=== PATIENT | female | born 1970 | race Caucasian/White ===

== ENCOUNTER 2022-05-26 10:20 | Emergency (ER) | payer OTHER, SELFPAY ==
[2022-05-26 10:52] VITALS: BP 161/77; PULSE 73; RESP 18; TEMP 36.6; O2SAT 98; BMI 33.3
--- OUTSIDE RECORDS SUMMARY | 2022-05-26 11:31 | XMS_ITS | Clinical Summary ---
:1970 Author Organization [facility] [place] [address] Care Team Providers Name Role Phone Pcp, No Primary Care Provider Unavailable Allergies Not on File Medications Not on file Active Problems Not on file Social History Tobacco Use Types Packs/Day Years Used Date Never Assessed Sex Assigned at Date Recorded Not on file Plan of Treatment Not on file Results Not on filefrom Last 3 Months Insurance Payer Benefit Plan / Subscriber ID Effective Dates Phone Addre ss Type Group PREFERRED ONE PREFERRED ONE [id number] 2015-Present [address] [place] [address] Care Teams Warehouseman Relationship Specialty Start Date End Date Pcp, No PCP - General 06/04/16 .
--- NOTE | 2022-05-26 11:43 | ED.HA ---
HPI - Headache General Chief Complaint: Headache/Migraine Stated Complaint: Weird headache, dizzy, blurred vision Time Seen by Provider: 05/26/22 11:02 History of Present Illness HPI Narrative: This 51-year-old female comes in reporting a headache in the posterior aspect of her head that began 4 days ago. She has some associated blurry vision and states that if she turns her head left or right she gets some vertigo symptoms. This is not the worst headache she has ever head. She does not get headaches row frequently. It was the blurry vision and vertigo symptoms brings her in today. She does not have any neurologic deficit. She does not report any nausea or vomiting. Related Data Home Medications Medication Instructions Recorded Confirmed cetirizine 10 mg tablet 10 mg PO QDAY PRN 03/20/22 03/29/22 estradiol 0.01% (0.1 mg/gram) 0.5 g vaginal 2XW 03/20/22 03/29/22 vaginal cream multivitamin (Multiple Vitamins 1 tab PO QDAY 03/20/22 03/29/22 tablet) Multiple vitamin PO 03/29/22 cyclobenzaprine 10 mg tablet 10 mg PO PRN 03/29/22 03/29/22 Previous Rx's Medication Instructions Recorded escitalopram oxalate 10 mg tablet 10 mg PO QDAY #90 tabs 03/29/22 trazodone 50 mg tablet 25 - 50 mg PO QDAY #90 tabs 03/29/22 ketorolac 10 mg tablet 10 mg PO Q8H 5 days #15 tabs 05/26/22 methylprednisolone 4 mg tablets in See Rx Instructions PO .COMPLEX 05/26/22 a dose pack (Medrol (Eliu)) #21 ea ondansetron HCl 4 mg tablet 4 mg PO Q6H #20 tabs 05/26/22 Allergies Allergy/AdvReac Type Severity Reaction Status Date / Time No Known Drug Allergies Allergy Verified 03/29/22 09:07 Review of Systems Status of ROS: Reports: 10 or more systems reviewed and unremarkable except as noted in History and below Narrative: Constitutional: No fevers, no weight gain or loss. Eyes: No discharge. She reports blurry vision. HENT: No congestion, no sore throat, no ear pain. Cardiovascular: No chest pain, no palpitations. Respiratory: No shortness of breath, no wheezes, no cough. Gastrointestinal: No abdominal pain, no vomiting, no diarrhea. Genitourinary: No dysuria, no hematuria. Musculoskeletal: Normal range of motion. Skin: No rashes, no pruritis. Neurological: No dizziness, weakness, sensory change, speech change. Vertigo symptoms when turning her head. No vertigo symptoms when remaining still. Endo/Heme/Allergies: No bruising or bleeding. No polydipsia. Pysch: no suicidality, no anxiety, no insomnia. All other systems reviewed and are negative. [facility] Medical History (Updated 05/26/22 @ 14:03 by Jose Manuel MD) History of endometrial biopsy (07/05/14) History of pyelonephritis History of pyelonephritis (2003) Pulmonary embolism Surgical History (Updated 03/28/22 @ 09:51 by Silva Vargas) H/O abdominoplasty H/O dilation and curettage H/O ovarian cystectomy H/O right breast biopsy History of abdominoplasty (2005) History of dilation and curettage (2010) History of right breast biopsy (1999) S/P appendectomy S/P section Status post appendectomy (1985) Status post bilateral breast reduction Status post bilateral breast reduction (1986) Status post delivery Social History Smoking Status: Never smoker Do you use any of these nicotine containing products: None Second hand tobacco smoke exposure: No How often do you have a drink containing alcohol: 2-4 times a month AUDIT-C Alcohol total score: 2 Non-prescribed substance use: denies use Little interest or pleasure in doing things: not at all Feeling down, depressed, or hopeless: not at all Exam Narrative: Exam Narrative: Constitutional: Well-developed, well-nourished, no acute distress. HEENT: Normocephalic, atraumatic. No nystagmus. Neck: Normal range of motion. Nontender. Supple. Heart: Regular. No murmurs. Normal rate. Intact distal pulses. Lungs: Clear to auscultation. No chest discomfort. No wheezes, rhonchi, or rales. Abdomen: Normal bowel sounds. Nontender. No rebound tenderness. Genitalia: Deferred. Back: No midline tenderness. Normal range of motion. Extremities: Normal range of motion. No injury. Skin: Intact. No rash. Warm. No erythema or pallor. Neurologic: No altered sensation. No weakness. Alert and oriented. [id number] is normal. No pronator drift. No facial asymmetry. Youth Pastor strength is equal bilaterally. Normal speech. Psychiatric: No suicidality. No anxiety or depression. No insomnia. Nursing notes and vitals signs are reviewed. Const: Vital Signs, click to edit/add: Vital Signs - 24 hr 05/26/22 10:52 Temperature 97.8 F Pulse Rate [Right Pulse Oximeter] 73 Respiratory Rate 18 Blood Pressure [Ri ght Upper Arm] 161/77 H Pulse Oximetry 98 Oxygen Delivery Me thod Room Air Course Vital Signs Vital signs: Initial Vital Signs Temperature 97.8 F 05/26/22 10:52 Temperature Source Temporal Artery Scan 05/26/22 10:52 Pulse Rate 73 05/26/22 10:52 Respiratory Rate 18 05/26/22 10:52 Blood Pressure 161/77 H 05/26/22 10:52 Blood Pressure Mean 105 05/26/22 10:52 Blood Pressure Position Sitting 05/26/22 10:52 Pulse Oximetry 98 05/26/22 10:52 Oxygen Delivery Method 05/26/22 10:52 Vital Signs Temperature 97.8 F 05/26/22 10:52 Pulse Rate 73 05/26/22 10:52 Respiratory Rate 18 05/26/22 10:52 Blood Pressure 161/77 H 05/26/22 10:52 Pulse Oximetry 98 05/26/22 10:52 Oxygen Delivery Method 05/26/22 10:52 Temperature 97.8 F 05/26/22 10:52 Pulse Rate 73 05/26/22 10:52 Respiratory Rate 18 05/26/22 10:52 Blood Pressure 161/77 H 05/26/22 10:52 Pulse Oximetry 98 05/26/22 10:52 Oxygen Delivery Method 05/26/22 10:52 MDM - Headache MDM Narrative Medical decision making narrative: This patient comes in with posterior headache that is mild to moderate and present for the past 4 days. She has some associated blurry vision and occasions of vertigo. When remaining still her vertigo is completely absent. Her neurologic exam is completely normal. The vertigo symptoms do not appear to be from a central process such as a stroke. However her headache: Sides with both the blurry vision and vertigo symptoms. This may be sign of a complicated migraine. I discussed imaging options including CT scan of the head which was declined in a process of shared decision making. The patient did receive oral doses of Toradol, Benadryl, Zofran, and meclizine. She received these medicines and states that they did not really help much with her symptoms. I did again review options for imaging and labs which the patient declined. She did received prescription for Toradol, Zofran, and Medrol Dosepak. I did describe signs and symptoms that would indicate a need for return and re-evaluation. I also recommended that she follow up with an eye doctor. Lab Data Labs: Lab Results 05/26/22 Range/Units 11:20 Urine Color Yellow (Yellow) Urine Appearance Clear (Clear) Urine pH 7.0 (5.0-8.5) Ur Specific [place] 1.015 (1.000-1.030) Urine Protein Negative (Negative) Urine Glucose (UA) Negative (Negative) Urine Ketones Negative (Negative) Urine Blood 1+ A (Negative) Urine Nitrite Negative (Negative) Urine Bilirubin Negative (Negative) Urine Urobilinogen 0.2 (0.2-1.0) Ur Leukocyte Esterase Negative (Negative) Urine RBC 5-10 A (0-2) Urine WBC 0-2 (0-5) Ur Squamous Epith Cells Few (None-Few) Urine Bacteria None (None) Discharge Plan Discharge Clinical Impression: Migraine Patient Disposition: Home, Self-Care Condition: Stable Additional Instructions: Take medications as needed and indicated. Follow up with MD or return if worsening. Prescriptions: New ondansetron HCl 4 mg tablet 4 mg PO Q6H Qty: 20 0RF ketorolac 10 mg tablet 10 mg PO Q8H 5 Days Qty: 15 0RF methylprednisolone [Medrol (Eliu)] 4 mg tablets,dose pack See Rx Instructions .ROUTE .COMPLEX Qty: 21 0RF Rx Instructions: orally per package directions No Action cyclobenzaprine 10 mg tablet 10 mg PO PRN Multiple vitamin PO trazodone 50 mg tablet 25 - 50 mg PO QDAY Qty: 90 0RF Rx Instructions: 1/2-1 tablet nightly as needed to help with sleep escitalopram oxalate 10 mg tablet 10 mg PO QDAY Qty: 90 3RF estradiol 0.01 % (0.1 mg/gram) cream 0.5 g vaginal 2XW cetirizine 10 mg tablet 10 mg PO QDAY PRN multivitamin [Multiple Vitamins] Tablet 1 tab PO QDAY Follow Up/Referrals: Chayito Ashton PA-C [Primary Care Provider] - Stand Alone Forms: [facility] Info Instructions
[2022-05-26] MEDS: MECLIZINE HCL 25 MG TABLET PO (12:20)
[2022-05-26] MEDS: diphenhydrAMINE 25 MG CAPSULE PO (12:20)
[2022-05-26] MEDS: ONDANSETRON ODT 4 MG TAB PO (12:20)
[2022-05-26] MEDS: KETOROLAC 10 MG TABLET PO (12:20)
[2022-05-26 12:39] LABS: Appearance Urine Clear (Clear); Bilirubin Urine Negative (Negative); Blood Urine 1+ (Negative); Color Urine Yellow (Yellow); Glucose Urine Negative (Negative); Ketones Urine Negative (Negative); Leukocyte Esterase Urine Negative (Negative); Nitrite Urine Negative (Negative); Protein Urine Negative (Negative); Specific Gravity Urine 1.015 (1.000-1.030); Urobilinogen Urine 0.2 (0.2-1.0)
[2022-05-26 12:57] LABS: Squamous Epithelial Cell Urine Few (None-Few); WBC Urine 0-2 (0-5)
== END 2022-05-26 14:12 | disposition home or self-care (01) ==
PROVIDERS: Emergency Provider Emergency Medicine Emergency Medical Services; PCP Physician Assistant Medical
DX: G43.909 Migraine, unspecified, not intractable, without status migrainosus (principal)
CPT/HCPCS: 81001; 99283; 99284; A9270

== ENCOUNTER 2022-06-25 10:16 | Outpatient (CLI) | payer OTHER, SELFPAY ==
--- OUTSIDE RECORDS SUMMARY | 2022-06-25 10:18 | XMS_ITS | Clinical Summary ---
:1970 Author Organization [facility] [employer] [facility] [place] [address] Care Team Providers Name Role Phone Pcp, [...] ss Type Group PREFERRED ONE PREFERRED ONE [id number] 2015-Present [address] [place] [address] Care Teams Release Of Information Clerk Relationship Specialty Start Date End Date Pcp, No PCP - General 06/04/16 .
== END 2022-06-25 10:17 | disposition home or self-care (01) ==
PROVIDERS: PCP Physician Assistant Medical; Visit Provider Obstetrics & Gynecology
DX: N92.0 Excessive and frequent menstruation with regular cycle (principal)
CPT/HCPCS: 84443

== ENCOUNTER 2022-07-13 09:06 | Outpatient (CLI) | payer OTHER, SELFPAY ==
--- NOTE | 2022-07-13 09:15 | CRLHL7_ITS ---
For Patients: As a result of the Century Cures Act, medical imaging exams and procedure reports are released immediately into your electronic medical record. You may view this report before your referring provider. If you have questions, please contact your health care provider. INDICATION: PERIMENOPAUSAL MENORRHAGIA COMPARISON: none TECHNIQUE: 2D kirk scale and color Doppler images were acquired of the pelvis using a transabdominal and transvaginal approach. FINDINGS: Sonographic images demonstrate a mildly prominent size and smooth outer contour of the uterus. Uterus measures 9.2 cm in length by 5.0 cm in AP diameter by 4.8 cm in transverse dimension. The myometrium has a heterogeneous echotexture. Small posterior uterine fibroid measuring 1.2 x 1.2 x 1.4 cm. The endometrial lining measures 5 mm in composite thickness. The right ovary measures 2.5 x 1.4 x 1.6 cm in size and the left ovary measures 3.7 x 1.6 x 2.6 cm. The ovaries demonstrate normal arterial and venous blood flow on color Doppler analysis. There are no suspicious fluid collections within the cul-de-sac. IMPRESSION: Endometrial thickness 5 millimeters. Small posterior uterine fibroid measuring 1.4 cm. Dictated by Ke Mehta MD @ 07/13/2022 10:00:24 AM (Electronically Signed)
== END 2022-07-13 09:07 | disposition home or self-care (01) ==
LOC: US 09:07
PROVIDERS: PCP Physician Assistant Medical; Visit Provider Obstetrics & Gynecology
DX: N92.0 Excessive and frequent menstruation with regular cycle (principal); R93.89 Abnormal findings on diagnostic imaging of other specified body structures
CPT/HCPCS: 76830; 76856